=== PATIENT | male | born 1965 | race Caucasian/White ===

== ENCOUNTER → 2017-11-15 | Outpatient (REF) | payer OTHER ==
[2017-11-15 12:13] LABS: PLATELET COUNT, AUTOMATED 207 10^3/uL (150-450)
[2017-11-15 12:30] LABS: INR 0.97; PARTIAL THROMBOPLASTIN TIME 29.6 SECONDS (25.4-37.6)
== END ==
LOC: M LABDRAW1 10:17
DX: M47.892 Other spondylosis, cervical region (principal)